=== PATIENT | female | born 1940 | race Caucasian/White ===

== ENCOUNTER 2017-11-14 19:48 | Inpatient (IN) | payer MEDICARE, OTHER ==
[2017-11-14] MEDS ORDERED: ALBUTEROL/IPRATROPIUM (NEB) 3 ML AMP HHN (21:30)
[2017-11-14] MEDS ORDERED: NACL 0.9% 3 ML SYG IV (21:30)
[2017-11-14] MEDS ORDERED: ONDANSETRON 4 MG INJ IV (21:30)
[2017-11-14] MEDS ORDERED: morphine 2 MG INJ IV (21:30)
[2017-11-14] MEDS ORDERED: hydrALAzine 20 MG INJ IV (22:30)
[2017-11-14] MEDS: ATORVASTATIN 10 MG TAB PO (22:37)
[2017-11-14] MEDS: ACETAMINOPHEN 325 MG TAB PO (22:37)
[2017-11-14] MEDS: SOD CHLORIDE 0.9% 1,000 ML IV (22:43)
[2017-11-14] MEDS: ZOLPIDEM 5 MG TAB PO (22:55)
[2017-11-15] MEDS: LEVOTHYROXINE 50 MCG TAB PO (06:06)
[2017-11-15] MEDS: GABAPENTIN 300 MG CAP PO (08:14)
[2017-11-15] MEDS: CILOSTAZOL 100 MG TAB PO ×2 (08:14→20:45)
[2017-11-15] MEDS: METOPROLOL (XL) 25 MG TAB PO (08:14)
[2017-11-15] MEDS: ASPIRIN (EC) 81 MG TAB PO (08:14)
[2017-11-15] MEDS: LISINOPRIL 5 MG TAB PO (08:14)
[2017-11-15] MEDS: SOD CHLORIDE 0.9% 1,000 ML IV ×3 (08:15→19:59)
[2017-11-15] MEDS: HEPARIN 5,000 UNIT/0.5 ML VIAL SC ×2 (08:21→20:46)
[2017-11-15 09:41] LABS: ADD MAN DIFF? NO
[2017-11-15 09:47] LABS: BASOPHILS % 0.2 % (0.0-2.0); EOSINOPHILS % 0.8 % (0.0-7.0); HEMATOCRIT 41.2 % (37.0-47.0); HEMOGLOBIN 14.2 g/dl (12.0-16.0); LYMPHOCYTES # 1.7 10^3/ul (0.8-2.9); MEAN CORPUSCULAR HGB CONC 34.5 g/dl (32.0-37.0); MEAN CORPUSCULAR VOLUME 92.8 fl (82.0-101.0); MEAN PLATELET VOLUME 9.2 fl (7.4-10.4); MONOCYTE # 0.5 10^3/ul (0.3-0.9); MONOCYTES % 9.3 % (0.0-11.0); NEUTROPHIL # 2.8 10^3/ul (1.6-7.5); NEUTROPHILS % 55.5 % (39.0-77.0); PLATELET COUNT 182 10^3/UL (140-415); RED BLOOD COUNT 4.44 10^6/ul (4.20-5.40)
[2017-11-15 10:01] LABS: HEMOGLOBIN A1C 5.6 % (0-5.9)
[2017-11-15 10:16] LABS: ALANINE AMINOTRANSFERASE 28 IU/L (13-69); ALBUMIN/GLOBULIN RATIO 1.17; ALKALINE PHOSPHATASE 63 IU/L (42-121); ANION GAP 15 (8-16); ASPARTATE AMINO TRANSFERASE 31 IU/L (15-46); BILIRUBIN,INDIRECT 0.8 mg/dl (0-1.1); BILIRUBIN,TOTAL 0.8 mg/dl (0.2-1.3); BLOOD UREA NITROGEN 7 mg/dl (7-20); CALCIUM 8.1 mg/dl (8.4-10.2); CARBON DIOXIDE 23 mmol/L (21-31); CHLORIDE 102 mmol/L (97-110); CHOLESTEROL 166 mg/dl (100-200); CREATININE 0.64 mg/dl (0.44-1.00); GLUCOSE 107 mg/dl (70-220); HDL CHOLESTEROL 54 mg/dl (33-92); LDL CHOLESTEROL,CALCULATED 95 mg/dl; MAGNESIUM 2.1 mg/dl (1.7-2.5); SODIUM 136 mmol/L (135-144); TOTAL PROTEIN 7.4 g/dl (6.1-8.1); TRIGLYCERIDES 83 mg/dl (0-149)
[2017-11-15] MEDS: ATORVASTATIN 10 MG TAB PO (20:45)
[2017-11-15] MEDS: ACETAMINOPHEN 325 MG TAB PO (23:45)
[2017-11-16] MEDS: morphine LIQ (10 MG/5 ML) CUP PO (04:03)
[2017-11-16] MEDS: LEVOTHYROXINE 50 MCG TAB PO (05:55)
[2017-11-16] MEDS: SOD CHLORIDE 0.9% 1,000 ML IV ×2 (05:55→15:43)
[2017-11-16] MEDS: GABAPENTIN 300 MG CAP PO ×3 (08:27→20:59)
[2017-11-16] MEDS: CILOSTAZOL 100 MG TAB PO ×2 (08:27→20:59)
[2017-11-16] MEDS: LISINOPRIL 5 MG TAB PO (08:27)
[2017-11-16] MEDS: METOPROLOL (XL) 25 MG TAB PO (08:28)
[2017-11-16] MEDS: ASPIRIN (EC) 81 MG TAB PO (08:28)
[2017-11-16] MEDS: HEPARIN 5,000 UNIT/0.5 ML VIAL SC ×2 (08:37→21:03)
[2017-11-16] MEDS ORDERED: traMADol 50 MG TAB PO (15:00)
[2017-11-16] MEDS: ATORVASTATIN 10 MG TAB PO (20:59)
[2017-11-17] MEDS: SOD CHLORIDE 0.9% 1,000 ML IV ×3 (01:46→21:08)
[2017-11-17] MEDS: ACETAMINOPHEN 325 MG TAB PO (05:05)
[2017-11-17] MEDS: LEVOTHYROXINE 50 MCG TAB PO (05:05)
[2017-11-17] MEDS: CILOSTAZOL 100 MG TAB PO ×2 (08:38→21:04)
[2017-11-17] MEDS: GABAPENTIN 300 MG CAP PO ×3 (08:38→21:04)
[2017-11-17] MEDS: LISINOPRIL 5 MG TAB PO (08:39)
[2017-11-17] MEDS: METOPROLOL (XL) 25 MG TAB PO (08:40)
[2017-11-17] MEDS: HEPARIN 5,000 UNIT/0.5 ML VIAL SC ×2 (08:44→21:05)
[2017-11-17] MEDS: ASPIRIN (EC) 81 MG TAB PO (08:44)
[2017-11-17 10:07] LABS: C-REACTIVE PROTEIN < 0.5 mg/dl (0.0-0.9)
[2017-11-17 10:11] LABS: ERYTHROCYTE SEDIMENTATION RATE 8 mm/Hr (0-30)
[2017-11-17] MEDS: ATORVASTATIN 10 MG TAB PO (21:04)
[2017-11-18] MEDS: LEVOTHYROXINE 50 MCG TAB PO (06:13)
[2017-11-18 06:34] LABS: ADD MAN DIFF? NO
[2017-11-18 06:47] LABS: BASOPHILS % 0.2 % (0.0-2.0); EOSINOPHILS # 0.1 10^3/ul (0.0-0.5); EOSINOPHILS % 1.5 % (0.0-7.0); HEMATOCRIT 36.8 % (37.0-47.0); HEMOGLOBIN 12.5 g/dl (12.0-16.0); LYMPHOCYTES % 32.3 % (15.0-51.0); MEAN CORPUSCULAR HEMOGLOBIN 31.7 pg (29.0-33.0); MEAN CORPUSCULAR VOLUME 93.4 fl (82.0-101.0); MEAN PLATELET VOLUME 9.4 fl (7.4-10.4); MONOCYTE # 0.5 10^3/ul (0.3-0.9); MONOCYTES % 7.9 % (0.0-11.0); NEUTROPHIL # 3.5 10^3/ul (1.6-7.5); NEUTROPHILS % 57.8 % (39.0-77.0); PLATELET COUNT 165 10^3/UL (140-415); RED BLOOD COUNT 3.94 10^6/ul (4.20-5.40); RED CELL DISTRIBUTION WIDTH 12.2 % (11.5-14.5)
[2017-11-18 06:47] LABS: WHITE BLOOD COUNT 6.1 10^3/ul (4.8-10.8)
[2017-11-18 07:24] LABS: INR 0.94; PROTIME 12.7 Sec (11.9-14.9)
[2017-11-18 08:25] LABS: ALANINE AMINOTRANSFERASE 17 IU/L (13-69); ALBUMIN 3.5 g/dl (3.3-4.9); ALBUMIN/GLOBULIN RATIO 1.09; ALKALINE PHOSPHATASE 61 IU/L (42-121); ANION GAP 14 (8-16); ASPARTATE AMINO TRANSFERASE 48 IU/L (15-46); BILIRUBIN,INDIRECT 0.3 mg/dl (0-1.1); BILIRUBIN,TOTAL 0.3 mg/dl (0.2-1.3); BLOOD UREA NITROGEN 14 mg/dl (7-20); CALCIUM 8.7 mg/dl (8.4-10.2); CARBON DIOXIDE 22 mmol/L (21-31); CHLORIDE 107 mmol/L (97-110); CREATININE 0.68 mg/dl (0.44-1.00); GLUCOSE 99 mg/dl (70-220); POTASSIUM 4.2 mmol/L (3.5-5.1); SODIUM 139 mmol/L (135-144); TOTAL PROTEIN 6.7 g/dl (6.1-8.1)
[2017-11-18] MEDS: CILOSTAZOL 100 MG TAB PO ×2 (08:31→20:30)
[2017-11-18] MEDS: GABAPENTIN 300 MG CAP PO ×3 (08:31→20:30)
[2017-11-18] MEDS: METOPROLOL (XL) 25 MG TAB PO (08:31)
[2017-11-18] MEDS: ASPIRIN (EC) 81 MG TAB PO (08:32)
[2017-11-18] MEDS: LISINOPRIL 5 MG TAB PO (08:32)
[2017-11-18] MEDS: HEPARIN 5,000 UNIT/0.5 ML VIAL SC ×2 (08:35→20:30)
[2017-11-18] MEDS: IOHEXOL 300MG/ML 150 ML BTL (10:37)
[2017-11-18] MEDS: SOD CHLORIDE 0.9% 100 ML (10:37)
[2017-11-18] MEDS: ACETAMINOPHEN 325 MG TAB PO (16:01)
[2017-11-18] MEDS: ATORVASTATIN 10 MG TAB PO (20:30)
[2017-11-19] MEDS: LEVOTHYROXINE 50 MCG TAB PO (06:18)
[2017-11-19 07:44] LABS: ADD MAN DIFF? NO
[2017-11-19 07:52] LABS: WHITE BLOOD COUNT 5.8 10^3/ul (4.8-10.8)
[2017-11-19 07:52] LABS: BASOPHILS % 0.2 % (0.0-2.0); EOSINOPHILS # 0.1 10^3/ul (0.0-0.5); EOSINOPHILS % 2.4 % (0.0-7.0); HEMATOCRIT 36.7 % (37.0-47.0); HEMOGLOBIN 12.5 g/dl (12.0-16.0); LYMPHOCYTES # 2.2 10^3/ul (0.8-2.9); LYMPHOCYTES % 37.8 % (15.0-51.0); MEAN CORPUSCULAR HEMOGLOBIN 32.1 pg (29.0-33.0); MEAN CORPUSCULAR HGB CONC 34.1 g/dl (32.0-37.0); MEAN CORPUSCULAR VOLUME 94.3 fl (82.0-101.0); MEAN PLATELET VOLUME 10.1 fl (7.4-10.4); MONOCYTE # 0.5 10^3/ul (0.3-0.9); MONOCYTES % 8.2 % (0.0-11.0); NEUTROPHILS % 51.2 % (39.0-77.0); PLATELET COUNT 171 10^3/UL (140-415); RED BLOOD COUNT 3.89 10^6/ul (4.20-5.40); RED CELL DISTRIBUTION WIDTH 12.5 % (11.5-14.5)
[2017-11-19 08:23] LABS: ALANINE AMINOTRANSFERASE 37 IU/L (13-69); ALBUMIN 3.3 g/dl (3.3-4.9); ALKALINE PHOSPHATASE 56 IU/L (42-121); ANION GAP 12 (8-16); ASPARTATE AMINO TRANSFERASE 37 IU/L (15-46); BILIRUBIN,INDIRECT 0.3 mg/dl (0-1.1); BILIRUBIN,TOTAL 0.3 mg/dl (0.2-1.3); BLOOD UREA NITROGEN 17 mg/dl (7-20); CALCIUM 8.9 mg/dl (8.4-10.2); CARBON DIOXIDE 25 mmol/L (21-31); CHLORIDE 108 mmol/L (97-110); CREATININE 0.78 mg/dl (0.44-1.00); GLUCOSE 94 mg/dl (70-220); POTASSIUM 3.9 mmol/L (3.5-5.1); SODIUM 141 mmol/L (135-144); TOTAL PROTEIN 6.3 g/dl (6.1-8.1)
[2017-11-19] MEDS: LISINOPRIL 5 MG TAB PO (09:00)
[2017-11-19] MEDS: METOPROLOL (XL) 25 MG TAB PO (09:00)
[2017-11-19] MEDS: CILOSTAZOL 100 MG TAB PO (10:02)
[2017-11-19] MEDS: ASPIRIN (EC) 81 MG TAB PO (10:04)
[2017-11-19] MEDS: GABAPENTIN 300 MG CAP PO ×2 (10:06→12:15)
[2017-11-19] MEDS: HEPARIN 5,000 UNIT/0.5 ML VIAL SC (10:16)
[2017-11-21 19:27] LABS: ANA SCREEN POSITIVE (NEGATIVE)
[2017-11-21 20:11] LABS: ANA PATTERN HOMOGENEOUS
== END 2017-11-19 16:05 | disposition home or self-care (01) | DRG 103 ==
LOC: MS4 19:48
PROVIDERS: Internal Medicine
DX: G43.809 Other migraine, not intractable, without status migrainosus (principal); E87.1 Hypo-osmolality and hyponatremia; I10 Essential (primary) hypertension; E78.5 Hyperlipidemia, unspecified; K29.70 Gastritis, unspecified, without bleeding; E03.9 Hypothyroidism, unspecified; I73.9 Peripheral vascular disease, unspecified; Z79.82 Long term (current) use of aspirin; Z95.0 Presence of cardiac pacemaker; R20.0 Anesthesia of skin
CPT/HCPCS: 70460; 80053; 80061; 82306; 83036; 83735; 84443; 85025; 85610; 85651; 86038; 86140; 87081; 93306; 93880; 93976; 97110; 97116; 97161; 97530

== ENCOUNTER 2017-12-25 14:21 | Inpatient (IN) | payer MEDICARE, OTHER ==
[2017-12-25] MEDS ORDERED: BISACODYL 10 MG SUPP PR (15:30)
[2017-12-25] MEDS: DOCUSATE SODIUM 100 MG CAP PO (21:00)
[2017-12-25] MEDS: SENNA TAB PO (21:00)
[2017-12-25] MEDS: ATORVASTATIN 20 MG TAB PO (21:23)
[2017-12-25] MEDS: METOPROLOL 25 MG TAB PO (21:23)
[2017-12-26 00:37] LABS: ADD UMIC YES; UR ASCORBIC ACID NEGATIVE (NEGATIVE); UR BACTERIA FEW /HPF (NONE SEEN); UR BILIRUBIN (Dip) NEGATIVE (NEGATIVE); UR BLOOD (Dip) 3+ mg/dL (NEGATIVE); UR CLARITY CLEAR (CLEAR); UR COLOR YELLOW (YELLOW); UR GLUCOSE (Dip) NEGATIVE (NEGATIVE); UR KETONES (Dip) NEGATIVE (NEGATIVE); UR LEUKOCYTE ESTERASE (Dip) NEGATIVE Leu/ul (NEGATIVE); UR MUCUS FEW /HPF (NONE SEEN); UR NITRITE (Dip) NEGATIVE (NEGATIVE); UR RBC 92 /HPF (0-5); UR SPECIFIC GRAVITY (Dip) 1.014 (1.003-1.030); UR TOTAL PROTEIN (Dip) NEGATIVE (NEGATIVE); UR UROBILINOGEN (Dip) NEGATIVE (NEGATIVE); UR WBC 17 /HPF (0-5)
[2017-12-26] MEDS: LEVOTHYROXINE 50 MCG TAB PO (06:01)
[2017-12-26 06:38] LABS: ADD MAN DIFF? NO
[2017-12-26 06:42] LABS: BASOPHILS % 0.3 % (0.0-2.0); EOSINOPHILS # 0.1 10^3/ul (0.0-0.5); HEMATOCRIT 41.1 % (37.0-47.0); LYMPHOCYTES # 2.7 10^3/ul (0.8-2.9); LYMPHOCYTES % 29.9 % (15.0-51.0); MEAN CORPUSCULAR HEMOGLOBIN 31.8 pg (29.0-33.0); MEAN CORPUSCULAR HGB CONC 34.1 g/dl (32.0-37.0); MEAN CORPUSCULAR VOLUME 93.4 fl (82.0-101.0); MEAN PLATELET VOLUME 9.6 fl (7.4-10.4); MONOCYTE # 0.7 10^3/ul (0.3-0.9); MONOCYTES % 7.8 % (0.0-11.0); NEUTROPHIL # 5.6 10^3/ul (1.6-7.5); NEUTROPHILS % 60.8 % (39.0-77.0); PLATELET COUNT 217 10^3/UL (140-415); RED CELL DISTRIBUTION WIDTH 12.4 % (11.5-14.5)
[2017-12-26 06:42] LABS: WHITE BLOOD COUNT 9.2 10^3/ul (4.8-10.8)
[2017-12-26 07:18] LABS: ALANINE AMINOTRANSFERASE 45 IU/L (13-69); ALBUMIN 4.3 g/dl (3.3-4.9); ALBUMIN/GLOBULIN RATIO 1.48; ALKALINE PHOSPHATASE 77 IU/L (42-121); ANION GAP 19 (8-16); ASPARTATE AMINO TRANSFERASE 34 IU/L (15-46); BILIRUBIN,INDIRECT 0.8 mg/dl (0-1.1); BILIRUBIN,TOTAL 0.8 mg/dl (0.2-1.3); BLOOD UREA NITROGEN 12 mg/dl (7-20); CALCIUM 9.5 mg/dl (8.4-10.2); CARBON DIOXIDE 27 mmol/L (21-31); CHLORIDE 100 mmol/L (97-110); CREATININE 0.88 mg/dl (0.44-1.00); GLUCOSE 122 mg/dl (70-220); POTASSIUM 4.8 mmol/L (3.5-5.1); SODIUM 141 mmol/L (135-144); TOTAL PROTEIN 7.2 g/dl (6.1-8.1)
[2017-12-26] MEDS ORDERED: ASPIRIN 81 MG TAB PO (09:00)
[2017-12-26] MEDS: FAMOTIDINE 20 MG TAB PO (09:19)
[2017-12-26] MEDS: CHOLECALCIFEROL 1,000 UNIT TAB PO (09:19)
[2017-12-26] MEDS: ASPIRIN 81 MG TAB PO (09:19)
[2017-12-26] MEDS: AMLODIPINE 2.5 MG TAB PO (09:20)
[2017-12-26] MEDS: METOPROLOL 25 MG TAB PO ×2 (09:20→20:44)
[2017-12-26] MEDS: LISINOPRIL 10 MG TAB PO (09:21)
[2017-12-26] MEDS: DOCUSATE SODIUM 100 MG CAP PO ×2 (09:21→20:45)
[2017-12-26] MEDS: LEVOFLOXACIN 500 MG TAB PO (12:31)
[2017-12-26] MEDS: ATORVASTATIN 40 MG TAB PO (20:44)
[2017-12-26] MEDS: SENNA TAB PO (20:45)
[2017-12-27] MEDS: LEVOTHYROXINE 50 MCG TAB PO (06:13)
[2017-12-27] MEDS: LEVOFLOXACIN 500 MG TAB PO (06:13)
[2017-12-27] MEDS: DOCUSATE SODIUM 100 MG CAP PO ×3 (09:00→20:26)
[2017-12-27] MEDS: FAMOTIDINE 20 MG TAB PO (10:18)
[2017-12-27] MEDS: CHOLECALCIFEROL 1,000 UNIT TAB PO (10:19)
[2017-12-27] MEDS: METOPROLOL 25 MG TAB PO ×2 (10:19→20:27)
[2017-12-27] MEDS: ASPIRIN 81 MG TAB PO (10:19)
[2017-12-27] MEDS: DOCUSATE SODIUM 10 MG/ML (10ML CUP) PO ×2 (10:30→20:26)
[2017-12-27] MEDS: AMLODIPINE 2.5 MG TAB PO (16:39)
[2017-12-27] MEDS: LISINOPRIL 10 MG TAB PO (16:39)
[2017-12-27] MEDS: ARTIFICIAL TEARS 15 ML OPH BOTH EYES ×2 (17:53→20:26)
[2017-12-27] MEDS: ATORVASTATIN 40 MG TAB PO (20:26)
[2017-12-27] MEDS: SENNA TAB PO (20:32)
[2017-12-28] MEDS: LEVOFLOXACIN 500 MG TAB PO (06:28)
[2017-12-28] MEDS: LEVOTHYROXINE 50 MCG TAB PO (06:28)
[2017-12-28] MEDS: DOCUSATE SODIUM 10 MG/ML (10ML CUP) PO ×2 (09:36→21:00)
[2017-12-28] MEDS: ARTIFICIAL TEARS 15 ML OPH BOTH EYES ×2 (09:36→21:02)
[2017-12-28] MEDS: CHOLECALCIFEROL 1,000 UNIT TAB PO (09:37)
[2017-12-28] MEDS: LISINOPRIL 10 MG TAB PO (09:37)
[2017-12-28] MEDS: ASPIRIN 81 MG TAB PO (09:37)
[2017-12-28] MEDS: AMLODIPINE 2.5 MG TAB PO (09:37)
[2017-12-28] MEDS: FAMOTIDINE 20 MG TAB PO (09:37)
[2017-12-28] MEDS: METOPROLOL 25 MG TAB PO ×2 (09:37→21:01)
[2017-12-28] MEDS: ATORVASTATIN 40 MG TAB PO (20:57)
[2017-12-28] MEDS: SENNA TAB PO (21:00)
[2017-12-29] MEDS: LEVOFLOXACIN 500 MG TAB PO (06:27)
[2017-12-29] MEDS: LEVOTHYROXINE 50 MCG TAB PO (06:27)
[2017-12-29] MEDS: ALENDRONATE 70 MG TAB PO (07:05)
[2017-12-29] MEDS: AMLODIPINE 2.5 MG TAB PO (09:00)
[2017-12-29] MEDS: LISINOPRIL 10 MG TAB PO (09:00)
[2017-12-29] MEDS: METOPROLOL 25 MG TAB PO ×2 (09:00→21:01)
[2017-12-29] MEDS: DOCUSATE SODIUM 10 MG/ML (10ML CUP) PO ×2 (09:28→21:09)
[2017-12-29] MEDS: ASPIRIN 81 MG TAB PO (09:28)
[2017-12-29] MEDS: ARTIFICIAL TEARS 15 ML OPH BOTH EYES ×2 (09:28→21:09)
[2017-12-29] MEDS: FAMOTIDINE 20 MG TAB PO (09:29)
[2017-12-29] MEDS: CHOLECALCIFEROL 1,000 UNIT TAB PO (09:30)
[2017-12-29] MEDS: BARIUM SULFATE 135 ML (E-Z HD) PO (10:39)
[2017-12-29] MEDS ORDERED: GLUCAGON 1 MG INJ IM (11:30)
[2017-12-29] MEDS ORDERED: GLUCOSE GEL 15 GRAM TUBE BUCCAL (11:30)
[2017-12-29] MEDS ORDERED: GLUCOSE GEL 15 GRAM TUBE PO ×2 (11:30)
[2017-12-29] MEDS ORDERED: DEXTROSE 50% 50 ML SYRINGE IV ×2 (11:30)
[2017-12-29] MEDS: INSULIN ASPART [NOVOLOG] 3 ML PEN SC ×3 (12:00→20:10)
[2017-12-29 12:42] LABS: HEMOGLOBIN A1C 6.1 % (0-5.9)
[2017-12-29] MEDS: ACCU-CHEK XX ×2 (14:28→19:35)
[2017-12-29] MEDS: CEFOTAXIME 1 GM/50 ML (PMX) 50 ML IVPB ×2 (15:02→22:07)
[2017-12-29] MEDS: SENNA TAB PO (21:00)
[2017-12-29] MEDS: ATORVASTATIN 40 MG TAB PO (21:00)
[2017-12-29] MEDS: ACETAMINOPHEN 325 MG TAB PO (21:02)
[2017-12-30] MEDS: ACCUCHECK AT 2AM (Patients on SS coverage) XX (02:00)
[2017-12-30] MEDS: LEVOFLOXACIN 500 MG TAB PO (05:58)
[2017-12-30] MEDS: CEFOTAXIME 1 GM/50 ML (PMX) 50 ML IVPB ×3 (05:58→21:06)
[2017-12-30] MEDS: LEVOTHYROXINE 50 MCG TAB PO (05:58)
[2017-12-30] MEDS: INSULIN ASPART [NOVOLOG] 3 ML PEN SC ×4 (07:35→21:00)
[2017-12-30] MEDS: ARTIFICIAL TEARS 15 ML OPH BOTH EYES ×2 (09:52→21:00)
[2017-12-30] MEDS: DOCUSATE SODIUM 10 MG/ML (10ML CUP) PO ×2 (09:53→21:00)
[2017-12-30] MEDS: ASPIRIN 81 MG TAB PO (09:53)
[2017-12-30] MEDS: METOPROLOL 25 MG TAB PO ×2 (09:54→21:00)
[2017-12-30] MEDS: FAMOTIDINE 20 MG TAB PO (09:55)
[2017-12-30] MEDS: CHOLECALCIFEROL 1,000 UNIT TAB PO (09:55)
[2017-12-30] MEDS: LISINOPRIL 10 MG TAB PO (09:56)
[2017-12-30] MEDS: AMLODIPINE 2.5 MG TAB PO (10:16)
[2017-12-30] MEDS: ACCU-CHEK XX ×3 (11:23→19:51)
[2017-12-30] MEDS: SENNA TAB PO (21:01)
[2017-12-30] MEDS: ATORVASTATIN 40 MG TAB PO (21:01)
[2017-12-31] MEDS: ACCUCHECK AT 2AM (Patients on SS coverage) XX (02:00)
[2017-12-31] MEDS: LEVOTHYROXINE 50 MCG TAB PO (06:03)
[2017-12-31] MEDS: CEFOTAXIME 1 GM/50 ML (PMX) 50 ML IVPB ×3 (06:03→20:59)
[2017-12-31] MEDS: LEVOFLOXACIN 500 MG TAB PO (06:03)
[2017-12-31] MEDS: INSULIN ASPART [NOVOLOG] 3 ML PEN SC ×4 (07:35→20:49)
[2017-12-31] MEDS: METOPROLOL 25 MG TAB PO ×2 (09:00→20:49)
[2017-12-31] MEDS: LISINOPRIL 10 MG TAB PO (09:00)
[2017-12-31] MEDS: AMLODIPINE 2.5 MG TAB PO (09:00)
[2017-12-31] MEDS: DOCUSATE SODIUM 10 MG/ML (10ML CUP) PO ×2 (09:26→20:47)
[2017-12-31] MEDS: CHOLECALCIFEROL 1,000 UNIT TAB PO (09:26)
[2017-12-31] MEDS: ASPIRIN 81 MG TAB PO (09:26)
[2017-12-31] MEDS: FAMOTIDINE 20 MG TAB PO (09:26)
[2017-12-31] MEDS: ARTIFICIAL TEARS 15 ML OPH BOTH EYES ×2 (09:26→20:47)
[2017-12-31] MEDS: ACCU-CHEK XX ×3 (10:19→19:50)
[2017-12-31] MEDS: ATORVASTATIN 40 MG TAB PO (20:48)
[2017-12-31] MEDS: SENNA TAB PO (20:48)
[2018-01-01] MEDS: ACCUCHECK AT 2AM (Patients on SS coverage) XX (02:00)
[2018-01-01] MEDS: LEVOTHYROXINE 50 MCG TAB PO (05:47)
[2018-01-01] MEDS: LEVOFLOXACIN 500 MG TAB PO (05:47)
[2018-01-01] MEDS: CEFOTAXIME 1 GM/50 ML (PMX) 50 ML IVPB ×3 (05:47→21:14)
[2018-01-01] MEDS: MAGNESIUM HYDROXIDE 30ML CUP PO (05:57)
[2018-01-01] MEDS: INSULIN ASPART [NOVOLOG] 3 ML PEN SC ×4 (07:35→20:57)
[2018-01-01] MEDS: ASPIRIN 81 MG TAB PO (08:29)
[2018-01-01] MEDS: DOCUSATE SODIUM 10 MG/ML (10ML CUP) PO ×2 (08:29→20:57)
[2018-01-01] MEDS: LISINOPRIL 10 MG TAB PO (08:29)
[2018-01-01] MEDS: CHOLECALCIFEROL 1,000 UNIT TAB PO (08:30)
[2018-01-01] MEDS: FAMOTIDINE 20 MG TAB PO (08:30)
[2018-01-01] MEDS: METOPROLOL 25 MG TAB PO ×2 (08:30→20:57)
[2018-01-01] MEDS: ARTIFICIAL TEARS 15 ML OPH BOTH EYES ×2 (08:31→20:57)
[2018-01-01] MEDS: AMLODIPINE 2.5 MG TAB PO (08:31)
[2018-01-01] MEDS: ACCU-CHEK XX ×3 (09:35→19:45)
[2018-01-01] MEDS: ATORVASTATIN 40 MG TAB PO (20:56)
[2018-01-01] MEDS: SENNA TAB PO (20:56)
[2018-01-02] MEDS: ACCUCHECK AT 2AM (Patients on SS coverage) XX (02:00)
[2018-01-02] MEDS: CEFOTAXIME 1 GM/50 ML (PMX) 50 ML IVPB ×3 (06:13→21:36)
[2018-01-02] MEDS: LEVOTHYROXINE 50 MCG TAB PO (06:14)
[2018-01-02] MEDS: INSULIN ASPART [NOVOLOG] 3 ML PEN SC ×4 (07:35→21:00)
[2018-01-02] MEDS: DOCUSATE SODIUM 10 MG/ML (10ML CUP) PO ×2 (09:07→20:27)
[2018-01-02] MEDS: FAMOTIDINE 20 MG TAB PO (09:07)
[2018-01-02] MEDS: AMLODIPINE 2.5 MG TAB PO (09:07)
[2018-01-02] MEDS: ASPIRIN 81 MG TAB PO (09:07)
[2018-01-02] MEDS: METOPROLOL 25 MG TAB PO ×2 (09:13→20:32)
[2018-01-02] MEDS: CHOLECALCIFEROL 1,000 UNIT TAB PO (09:13)
[2018-01-02] MEDS: LISINOPRIL 10 MG TAB PO (09:13)
[2018-01-02] MEDS: ARTIFICIAL TEARS 15 ML OPH BOTH EYES ×2 (09:14→20:27)
[2018-01-02] MEDS: ACCU-CHEK XX ×3 (10:04→20:34)
[2018-01-02] MEDS: SENNA TAB PO (20:22)
[2018-01-02] MEDS: ATORVASTATIN 40 MG TAB PO (20:22)
[2018-01-03] MEDS: ACCUCHECK AT 2AM (Patients on SS coverage) XX (01:58)
[2018-01-03] MEDS: CEFOTAXIME 1 GM/50 ML (PMX) 50 ML IVPB (05:56)
[2018-01-03] MEDS: LEVOTHYROXINE 50 MCG TAB PO (06:00)
[2018-01-03] MEDS: INSULIN ASPART [NOVOLOG] 3 ML PEN SC ×4 (07:35→20:53)
[2018-01-03 08:04] LABS: ADD MAN DIFF? NO
[2018-01-03 08:09] LABS: BASOPHILS % 0.1 % (0.0-2.0); EOSINOPHILS # 0.1 10^3/ul (0.0-0.5); EOSINOPHILS % 1.4 % (0.0-7.0); HEMATOCRIT 37.9 % (37.0-47.0); HEMOGLOBIN 12.4 g/dl (12.0-16.0); LYMPHOCYTES # 1.9 10^3/ul (0.8-2.9); MEAN CORPUSCULAR HEMOGLOBIN 31.2 pg (29.0-33.0); MEAN CORPUSCULAR HGB CONC 32.7 g/dl (32.0-37.0); MEAN CORPUSCULAR VOLUME 95.5 fl (82.0-101.0); MEAN PLATELET VOLUME 10.2 fl (7.4-10.4); MONOCYTE # 0.5 10^3/ul (0.3-0.9); MONOCYTES % 7.1 % (0.0-11.0); NEUTROPHIL # 4.4 10^3/ul (1.6-7.5); NEUTROPHILS % 64.3 % (39.0-77.0); PLATELET COUNT 207 10^3/UL (140-415); RED BLOOD COUNT 3.97 10^6/ul (4.20-5.40); RED CELL DISTRIBUTION WIDTH 12.7 % (11.5-14.5)
[2018-01-03 08:09] LABS: WHITE BLOOD COUNT 6.9 10^3/ul (4.8-10.8)
[2018-01-03] MEDS: ARTIFICIAL TEARS 15 ML OPH BOTH EYES ×2 (08:17→20:52)
[2018-01-03] MEDS: ASPIRIN 81 MG TAB PO (08:17)
[2018-01-03] MEDS: CHOLECALCIFEROL 1,000 UNIT TAB PO (08:18)
[2018-01-03] MEDS: FAMOTIDINE 20 MG TAB PO (08:18)
[2018-01-03 08:28] LABS: ANION GAP 11 (8-16); BLOOD UREA NITROGEN 16 mg/dl (7-20); CARBON DIOXIDE 29 mmol/L (21-31); CHLORIDE 108 mmol/L (97-110); CREATININE 0.82 mg/dl (0.44-1.00); GLUCOSE 100 mg/dl (70-220); MAGNESIUM 2.4 mg/dl (1.7-2.5); PHOSPHORUS 4.1 mg/dl (2.5-4.9); POTASSIUM 5.2 mmol/L (3.5-5.1); SODIUM 143 mmol/L (135-144)
[2018-01-03] MEDS: METOPROLOL 25 MG TAB PO ×2 (09:00→20:52)
[2018-01-03] MEDS: DOCUSATE SODIUM 10 MG/ML (10ML CUP) PO ×2 (09:00→20:52)
[2018-01-03] MEDS: AMLODIPINE 2.5 MG TAB PO (09:00)
[2018-01-03] MEDS: LISINOPRIL 10 MG TAB PO (09:00)
[2018-01-03] MEDS: ACCU-CHEK XX ×3 (10:45→19:40)
[2018-01-03] MEDS: ATORVASTATIN 40 MG TAB PO (20:52)
[2018-01-03] MEDS: SENNA TAB PO (20:53)
[2018-01-04] MEDS: ACCUCHECK AT 2AM (Patients on SS coverage) XX (01:28)
[2018-01-04] MEDS: LEVOTHYROXINE 50 MCG TAB PO (05:50)
[2018-01-04] MEDS: INSULIN ASPART [NOVOLOG] 3 ML PEN SC ×4 (07:35→20:11)
[2018-01-04 07:36] LABS: ADD MAN DIFF? NO
[2018-01-04 07:40] LABS: WHITE BLOOD COUNT 7.7 10^3/ul (4.8-10.8)
[2018-01-04 07:40] LABS: BASOPHILS % 0.1 % (0.0-2.0); EOSINOPHILS # 0.1 10^3/ul (0.0-0.5); EOSINOPHILS % 1.2 % (0.0-7.0); LYMPHOCYTES # 1.9 10^3/ul (0.8-2.9); LYMPHOCYTES % 24.1 % (15.0-51.0); MEAN CORPUSCULAR HEMOGLOBIN 31.7 pg (29.0-33.0); MEAN CORPUSCULAR HGB CONC 33.3 g/dl (32.0-37.0); MEAN CORPUSCULAR VOLUME 95.2 fl (82.0-101.0); MEAN PLATELET VOLUME 10.5 fl (7.4-10.4); MONOCYTE # 0.6 10^3/ul (0.3-0.9); MONOCYTES % 7.7 % (0.0-11.0); NEUTROPHIL # 5.1 10^3/ul (1.6-7.5); NEUTROPHILS % 66.8 % (39.0-77.0); PLATELET COUNT 201 10^3/UL (140-415); RED BLOOD COUNT 3.78 10^6/ul (4.20-5.40); RED CELL DISTRIBUTION WIDTH 12.7 % (11.5-14.5)
[2018-01-04 08:24] LABS: ANION GAP 11 (8-16); BLOOD UREA NITROGEN 15 mg/dl (7-20); CARBON DIOXIDE 27 mmol/L (21-31); CHLORIDE 108 mmol/L (97-110); CREATININE 0.74 mg/dl (0.44-1.00); GLUCOSE 97 mg/dl (70-220); MAGNESIUM 2.2 mg/dl (1.7-2.5); PHOSPHORUS 4.3 mg/dl (2.5-4.9); POTASSIUM 4.3 mmol/L (3.5-5.1); SODIUM 142 mmol/L (135-144)
[2018-01-04] MEDS: LISINOPRIL 10 MG TAB PO (09:00)
[2018-01-04] MEDS: METOPROLOL 25 MG TAB PO ×2 (09:00→20:13)
[2018-01-04] MEDS: AMLODIPINE 2.5 MG TAB PO (09:00)
[2018-01-04] MEDS: CHOLECALCIFEROL 1,000 UNIT TAB PO (09:27)
[2018-01-04] MEDS: FAMOTIDINE 20 MG TAB PO (09:27)
[2018-01-04] MEDS: ASPIRIN 81 MG TAB PO (09:27)
[2018-01-04] MEDS: ARTIFICIAL TEARS 15 ML OPH BOTH EYES ×2 (09:28→20:13)
[2018-01-04] MEDS: DOCUSATE SODIUM 10 MG/ML (10ML CUP) PO ×2 (09:28→20:14)
[2018-01-04] MEDS: ACCU-CHEK XX (13:00)
[2018-01-04] MEDS: ATORVASTATIN 40 MG TAB PO (20:13)
[2018-01-04] MEDS: SENNA TAB PO (20:14)
[2018-01-05] MEDS: ACCUCHECK AT 2AM (Patients on SS coverage) XX (02:00)
[2018-01-05] MEDS: LEVOTHYROXINE 50 MCG TAB PO (06:36)
[2018-01-05] MEDS: ALENDRONATE 70 MG TAB PO (07:05)
[2018-01-05] MEDS: INSULIN ASPART [NOVOLOG] 3 ML PEN SC ×4 (07:35→20:35)
[2018-01-05] MEDS: ASPIRIN 81 MG TAB PO (08:43)
[2018-01-05] MEDS: ARTIFICIAL TEARS 15 ML OPH BOTH EYES ×2 (08:43→20:36)
[2018-01-05] MEDS: FAMOTIDINE 20 MG TAB PO (08:43)
[2018-01-05] MEDS: DOCUSATE SODIUM 10 MG/ML (10ML CUP) PO ×2 (08:43→20:35)
[2018-01-05] MEDS: AMLODIPINE 2.5 MG TAB PO (08:44)
[2018-01-05] MEDS: CHOLECALCIFEROL 1,000 UNIT TAB PO (08:44)
[2018-01-05] MEDS: LISINOPRIL 10 MG TAB PO (08:44)
[2018-01-05] MEDS: METOPROLOL 25 MG TAB PO ×2 (08:45→20:35)
[2018-01-05] MEDS: ATORVASTATIN 40 MG TAB PO (20:35)
[2018-01-05] MEDS: SENNA TAB PO (20:35)
[2018-01-06] MEDS: ACCUCHECK AT 2AM (Patients on SS coverage) XX (02:00)
[2018-01-06] MEDS: LEVOTHYROXINE 50 MCG TAB PO (06:49)
[2018-01-06] MEDS: INSULIN ASPART [NOVOLOG] 3 ML PEN SC ×4 (07:35→20:12)
[2018-01-06] MEDS: ASPIRIN 81 MG TAB PO (08:56)
[2018-01-06] MEDS: CHOLECALCIFEROL 1,000 UNIT TAB PO (08:56)
[2018-01-06] MEDS: FAMOTIDINE 20 MG TAB PO (08:56)
[2018-01-06] MEDS: DOCUSATE SODIUM 10 MG/ML (10ML CUP) PO ×2 (08:56→20:11)
[2018-01-06] MEDS: ALENDRONATE 70 MG TAB PO (08:57)
[2018-01-06] MEDS: ARTIFICIAL TEARS 15 ML OPH BOTH EYES ×2 (08:57→20:12)
[2018-01-06] MEDS: LISINOPRIL 10 MG TAB PO (09:00)
[2018-01-06] MEDS: AMLODIPINE 2.5 MG TAB PO (09:00)
[2018-01-06] MEDS: METOPROLOL 25 MG TAB PO ×2 (09:00→20:12)
[2018-01-06] MEDS: SENNA TAB PO (20:12)
[2018-01-06] MEDS: ATORVASTATIN 40 MG TAB PO (20:12)
[2018-01-07] MEDS: ACCUCHECK AT 2AM (Patients on SS coverage) XX (02:00)
[2018-01-07] MEDS: LEVOTHYROXINE 50 MCG TAB PO (06:10)
[2018-01-07] MEDS: ASPIRIN 81 MG TAB PO (08:35)
[2018-01-07] MEDS: DOCUSATE SODIUM 10 MG/ML (10ML CUP) PO ×2 (08:35→21:12)
[2018-01-07] MEDS: FAMOTIDINE 20 MG TAB PO (08:35)
[2018-01-07] MEDS: CHOLECALCIFEROL 1,000 UNIT TAB PO (08:35)
[2018-01-07] MEDS: ARTIFICIAL TEARS 15 ML OPH BOTH EYES ×2 (08:36→21:12)
[2018-01-07] MEDS: INSULIN ASPART [NOVOLOG] 3 ML PEN SC (08:50)
[2018-01-07] MEDS: METOPROLOL 25 MG TAB PO ×2 (09:00→21:00)
[2018-01-07] MEDS: LISINOPRIL 10 MG TAB PO (09:00)
[2018-01-07] MEDS: AMLODIPINE 2.5 MG TAB PO (09:00)
[2018-01-07] MEDS: ATORVASTATIN 40 MG TAB PO (21:13)
[2018-01-07] MEDS: SENNA TAB PO (21:13)
[2018-01-08] MEDS: LEVOTHYROXINE 50 MCG TAB PO (06:21)
[2018-01-08] MEDS: CHOLECALCIFEROL 1,000 UNIT TAB PO (08:59)
[2018-01-08] MEDS: METOPROLOL 25 MG TAB PO (09:00)
[2018-01-08] MEDS: ARTIFICIAL TEARS 15 ML OPH BOTH EYES (09:00)
[2018-01-08] MEDS: AMLODIPINE 2.5 MG TAB PO (09:00)
[2018-01-08] MEDS: DOCUSATE SODIUM 10 MG/ML (10ML CUP) PO (09:00)
[2018-01-08] MEDS: LISINOPRIL 10 MG TAB PO (09:00)
[2018-01-08] MEDS: LACTULOSE 30ML CUP PO (09:00)
[2018-01-08] MEDS: FAMOTIDINE 20 MG TAB PO (09:00)
[2018-01-08] MEDS: ASPIRIN 81 MG TAB PO (09:00)
== END 2018-01-08 13:30 | disposition home health service (06) | DRG 57 ==
LOC: VRC 14:21
PROC: F08Z0ZZ Bathing/Showering Techniques Treatment (ICD-10-PCS; principal; 2017-12-25)
PROC: F07Z5ZZ Bed Mobility Treatment (ICD-10-PCS; 2017-12-25)
PROC: F06Z6ZZ Communicative/Cognitive Integration Skills Treatment (ICD-10-PCS; 2017-12-25)
DX: I69.954 Hemiplegia and hemiparesis following unspecified cerebrovascular disease affecting left non-dominant side (principal); N39.0 Urinary tract infection, site not specified; I69.991 Dysphagia following unspecified cerebrovascular disease; R13.10 Dysphagia, unspecified; I10 Essential (primary) hypertension; F06.31 Mood disorder due to known physiological condition with depressive features; I49.5 Sick sinus syndrome; E03.9 Hypothyroidism, unspecified; M81.0 Age-related osteoporosis without current pathological fracture; K21.9 Gastro-esophageal reflux disease without esophagitis; E87.5 Hyperkalemia; E78.5 Hyperlipidemia, unspecified; B96.20 Unspecified Escherichia coli [E. coli] as the cause of diseases classified elsewhere; E11.9 Type 2 diabetes mellitus without complications; Z95.0 Presence of cardiac pacemaker; Z79.82 Long term (current) use of aspirin
CPT/HCPCS: 74230; 80048; 80053; 81001; 82962; 83036; 83735; 84100; 85025; 87081; 87086; 92507; 92523; 92526; 92610; 92611; 97110; 97112; 97116; 97163; 97167; 97530; 97535